=== PATIENT | female | born 1990 | race Hispanic/Latino ===

== ENCOUNTER 2018-10-24 15:42 | Emergency (ER) | payer SELFPAY ==
[~2018-10-24] VITALS: Ht 165.1 cm; Wt 80.0 kg
[~2018-10-24 15:42] MED LIST: BACTRIM DS1 TAB PO; MOTRIN800 MG PO
[2018-10-24 16:18] LABS: URINE BILIRUBIN - DIPSTICK NEGATIVE (NEGATIVE); URINE BLOOD DIPSTICK TRACE-INTACT (NEGATIVE); URINE COLOR YELLOW; URINE GLUCOSE - DIPSTICK NEGATIVE (NEGATIVE); URINE KETONE NEGATIVE (NEGATIVE); URINE LEUK ESTERASE NEGATIVE (NEGATIVE); URINE NITRITE - DIPSTICK NEGATIVE (Negative); URINE PROTEIN - DIPSTICK NEGATIVE (NEG-TRACE); URINE SPECIFIC GRAVITY <=1.005; URINE UROBILINOGEN - DIPSTICK 0.2 E.U./dL (0.2)
[2018-10-24] MEDS ORDERED: FIORICET PO (17:47)
[2018-10-24 18:00] VITALS: BP 119/56
== END 2018-10-24 18:00 | disposition home or self-care (01) | DRG 103 ==
LOC: ED 15:42
DX: R51 Headache (principal)